=== PATIENT | male | born 1980 | race Two or more races ===

== ENCOUNTER 2016-09-25 02:45 | Emergency (ER) | payer SELFPAY ==
[~2016-09-25] VITALS: Ht 190.5 cm; Wt 140.6 kg
[2016-09-25 04:24] VITALS: BP 126/69
[2016-09-25] MEDS ORDERED: cefTRIAXone 1GM/50ML D5W 50 ML IV ONE ×2 (04:51→05:00)
[2016-09-25] MEDS ORDERED: cefTRIAXone SOD 1,000 MG VL IM ONE (05:00)
[2016-09-25] MEDS ORDERED: IBUPROFEN 600 MG TAB PO ONE (05:00)
== END 2016-09-25 05:48 | disposition home or self-care (01) ==
LOC: ER 03:01
DX: L02.415 Cutaneous abscess of right lower limb (principal); L03.115 Cellulitis of right lower limb
CPT/HCPCS: 96365; 99284; J0696